=== PATIENT | male | born 1945 | race Caucasian/White ===

== ENCOUNTER 2016-12-24 12:32 | Observation (INO) | payer MEDICARE, BC ==
[~2016-12-24] VITALS: Ht 182.9 cm; Wt 71.2 kg
[2016-12-24] VITALS (9 sets, daily range): BP systolic 118–145; BP diastolic 71–84
[~2016-12-24 12:32] MED LIST: AMLO1TAB12 PO; ASPI325T4 PO; HYDROmorphone 2 MG/ML VIAL IV PRN; IV RINGERS,LACTATED 1000ML 1,000 ML IV SCH; LIDOCAINE 1% 1 ML SYRINGE. ID PRN; MORPHINE SULFATE 2 MG/ML DISP.SYRIN. IV PRN; PROCHLORPERAZINE 10 MG/2 ML VIAL. IV PRN; SIMV80TA3 PO; fentaNYL PF VIAL 100 MCG/2 ML VIAL IV PRN
[2016-12-24 13:03] LABS: BILIRUBIN,URINE NEGATIVE (NEG); GLUCOSE,URINE NEGATIVE (NEG); NITRITE,URINE NEGATIVE (NEG); PROTEIN,URINE NEGATIVE (NEG-TRACE); UROBILINOGEN,URINE 0.2 mg/dL (0.2 mg/dL)
[2016-12-24 13:13] LABS: BASO # 0.1 x10^3/uL (0.0-0.2); BASO % 1 % (0-3); EOS % 1 % (0-3); HEMATOCRIT 38.4 % (39.0-53.0); HEMOGLOBIN 13.1 g/dL (13.0-17.5); LYMPH # 1.3 x10^3/uL (1.0-4.8); LYMPH % 17 % (24-48); MEAN CORPUSCULAR HEMOGLOBIN 32 pg (25-35); MEAN CORPUSCULAR HGB CONC 34 g/dL (31-37); MEAN CORPUSCULAR VOLUME 95 fL (79-100); MONO % 9 % (0-9); NEUT % 73 % (31-73); PLATELET COUNT 160 x10^3/uL (140-400); RED BLOOD COUNT 4.07 x10^6/uL (4.30-5.70); WHITE BLOOD COUNT 7.9 x10^3/uL (4.0-11.0)
[2016-12-24 13:15] LABS: BACTERIA,URINE 0 /HPF (0-FEW); RBC,URINE >40 /HPF (0-2)
[2016-12-24 13:20] LABS: GFR 73.7; POTASSIUM 3.9 mmol/L (3.5-5.1)
[2016-12-24 13:22] LABS: INR 1.1 (0.8-1.1); PROTHROMBIN TIME PATIENT 13.3 SEC (11.7-14.0)
[2016-12-24] MEDS ORDERED: LIDOCAINE 2% PF Vial for OR 5 ML VIAL. ONE (13:27)
[2016-12-24] MEDS ORDERED: PROPOFOL 20 ML IV ONE ×2 (13:27→15:02)
[2016-12-24] MEDS ORDERED: fentaNYL PF VIAL 100 MCG/2 ML VIAL ONE (13:27)
[2016-12-24] MEDS ORDERED: PHENYLEPHRINE in 0.9% NACL PF 1 MG/10 ML DISP.SYRIN. IV ONE (14:52)
[2016-12-24] MEDS ORDERED: ONDANSETRON PF 4 MG/2 ML VIAL. ONE (15:08)
[2016-12-24] MEDS ORDERED: DEXAMETHASONE SOD PHOS 20 MG/5 ML VIAL. ONE (15:14)
[2016-12-24] MEDS ORDERED: MAG HYDROX/ALUMINUM HYD/SIMETH 30 ML ORAL.SUSP PO PRN (15:30)
[2016-12-24] MEDS ORDERED: MAGNESIUM HYDROXIDE 2,400 MG/30 ML ORAL.SUSP. PO PRN (15:30)
[2016-12-24] MEDS ORDERED: ACETAMINOPHEN 325 MG TABLET. PO PRN (15:30)
[2016-12-24] MEDS ORDERED: HYDROcodone/APAP 5/325MG 1 TAB TABLET PO PRN (15:30)
[2016-12-24] MEDS ORDERED: 0.9 % SODIUM CHLORIDE 10 ML DISP.SYRIN. IV PRN (15:30)
[2016-12-24] MEDS ORDERED: ONDANSETRON PF 4 MG/2 ML VIAL. IV PRN (15:30)
[2016-12-24] MEDS ORDERED: NALOXONE 0.4 MG/ML VIAL. IV PRN (15:30)
[2016-12-24] MEDS ORDERED: diphenhydrAMINE HCL 25 MG CAPSULE PO PRN (15:30)
--- NOTE | 2016-12-24 15:34 | PDOC ---
BRIEF OPERATIVE NOTE Date: Dec 24, 2016 Pre-Op Diagnosis Hematuria, Bladder Tumor Post-Op Diagnosis same Procedure Performed Transurethral Resection of large Bladder Tumor Surgeon Shelby Anesthesia Type: General Blood Loss less than 100cc Specimens Obtained Bladder tumor sent to Path Findings Large bladder tumor (posterior wall) Complications None Additional Remarks Observation bed TAVO SCHMID DO Dec 24, 2016 15:34
[2016-12-24] MEDS: IV NORMAL SALINE 1000ML BAG 1,000 ML IV SCH (16:55)
[2016-12-24] MEDS: NICOTINE 21MG PATCH. TD SCH (16:56)
--- NOTE | 2016-12-24 20:48 | OP ---
DATE OF SURGERY: 12/24/2016 PREOPERATIVE DIAGNOSIS: Intermittent gross hematuria, large bladder tumor. POSTOPERATIVE DIAGNOSIS: Intermittent gross hematuria, large bladder tumor. PROCEDURE: Transurethral resection of large bladder tumor (floor of the bladder -- posterior wall). SURGEON: Tavo Schmid DO. ANESTHESIA: General. INDICATIONS AND JUDGMENT: This is a 71-year-old male, patient of Dr. Herrera that was experiencing intermittent gross hematuria. He has a long history of tobacco abuse. He underwent cystoscopy in the office, was found to have a large bladder tumor on the floor of the bladder. It was felt that he should undergo transurethral resection of bladder tumor. The procedure was explained to the patient as well as possible risks and complications. He appeared to understand and was agreeable. DESCRIPTION OF PROCEDURE: The patient was preloaded with IV Levaquin. He was taken to the operating room and placed on the operating room table in a supine position, given a general anesthetic and then placed in a dorsolithotomy position using Les stirrups since we do not have a cystoscopy table. Rigid cystoscopy was performed. The urethra has normal course and caliber. He has a 20-gram prostate with visual obstruction. The scope was advanced into the bladder. The bladder was carefully examined. Once again, he was found to have 1 solitary large bladder tumor on the posterior wall of the bladder towards the dome. A well lubricated 24-Mauritanian resectoscope sheath was introduced into the urethra and into the bladder. Using an [employer] resectoscope, the tumor was very carefully resected down to its base. Once it had all been removed, the base of the tumor was cauterized. Hemostasis was satisfactory. All the tumor was then removed from the bladder using Ellik evacuator. Samples of the bladder tumor sent to pathology for tissue diagnosis. A well lubricated 20-Mauritanian 2-way Wiggins catheter was then inserted into the urethra and into the bladder without difficulty; 10 mL balloon and this was connected to a dependent drainage bag. The return of the urine was clear. There was no gross hematuria or clots. The patient tolerated the procedure well and was sent to recovery room in satisfactory condition. We will place him in a bed overnight and most likely let him be discharged tomorrow. TAVO SCHMID DO DR: JIMI/jennifer JOB#: [id number] / [id number]
[2016-12-24] MEDS: SENNOSIDES/DOCUSATE 8.6/50MG TABLET. PO SCH (21:00)
[2016-12-25 03:10] VITALS: BP 106/65
[2016-12-25] MEDS: IV NORMAL SALINE 1000ML BAG 1,000 ML IV SCH (06:05)
[2016-12-25 07:00] VITALS: BP 114/76
[2016-12-25 08:09] LABS: BASO % 0 % (0-3); EOS % 0 % (0-3); HEMATOCRIT 35.5 % (39.0-53.0); HEMOGLOBIN 12.1 g/dL (13.0-17.5); LYMPH # 0.6 x10^3/uL (1.0-4.8); LYMPH % 9 % (24-48); MEAN CORPUSCULAR HEMOGLOBIN 32 pg (25-35); MEAN CORPUSCULAR HGB CONC 34 g/dL (31-37); MEAN CORPUSCULAR VOLUME 95 fL (79-100); MONO % 7 % (0-9); NEUT % 84 % (31-73); PLATELET COUNT 137 x10^3/uL (140-400); RED BLOOD COUNT 3.76 x10^6/uL (4.30-5.70); RED CELL DISTRIBUTION WIDTH 13.4 % (11.5-14.5); WHITE BLOOD COUNT 7.4 x10^3/uL (4.0-11.0)
[2016-12-25 08:24] LABS: CALCIUM 8.3 mg/dL (8.5-10.1); CREATININE 0.9 mg/dL (0.7-1.3); GFR 83.2; POTASSIUM 4.4 mmol/L (3.5-5.1)
[2016-12-25] MEDS: NICOTINE 21MG PATCH. TD SCH (09:00)
[2016-12-25] MEDS: SENNOSIDES/DOCUSATE 8.6/50MG TABLET. PO SCH (09:00)
[2016-12-25 11:00] VITALS: BP 117/73
--- NOTE | 2016-12-25 15:03 | PDOC ---
Provider Note Provider Note Urology: POD# 1 TUR-BT Wiggins out, urine clear, Path pending Plan: Home RX Mimi Biswas Will call patient with Path report when available. TAVO SCHMID DO Dec 25, 2016 15:03
--- NOTE | 2016-12-25 15:05 | DISCH ---
DISCHARGE INSTRUCTIONS Condition on Discharge Condition on Discharge: Stable Activity After Discharge Activity Instructions for Disc: Avoid exertion Lifting Instructions after Dis: No heavy lifting Diet after Discharge Diet after Discharge: Regular Wound Incision Care Other wound/incision instructi: Void frequently to keep bladder empty as possible Contacting the DRArnulfo after DC Call your doctor for: Concerns you may have Follow-Up Follow up with: Dr Schmid will call you when Path report available TAVO SCHMID DO Dec 25, 2016 15:05
--- NOTE | 2016-12-25 23:22 | DS ---
DATE OF DISCHARGE: 12/25/2016 FINAL DIAGNOSIS: 1. Bladder cancer. OPERATIONS AND PROCEDURES: Transurethral resection of bladder tumor, 12/24/2016. This is a summary of the patient's hospital course. Well documented history and physical can be found within the body of the chart. Briefly, this 71-year-old male has a history of intermittent gross hematuria. He underwent cystoscopy in the office, was found to have a rather large bladder tumor on the floor of the bladder. It was felt that he should be brought to the hospital for transurethral resection of bladder tumor. The patient presented to the hospital on 12/24/2016. Under general anesthesia, transurethral resection of bladder tumor was performed. He tolerated the procedure well. At the conclusion, an indwelling Wiggins catheter was left in place. The patient was admitted to an observation bed overnight to monitor for gross hematuria. The following morning, his urine was clear, his Iwggins catheter was removed. He was voiding satisfactorily. Therefore, it was felt that he could be discharged home. The pathology report is still pending. The patient was discharged, he was given discharge instructions. He was given a prescription for Cipro antibiotics 500 mg p.o. b.i.d. for 3 days. Also, prescription for Flomax 1 tablet p.o. daily after supper, dispensed 30. I told the patient that I would call him as soon as I receive the pathology report. TAVO SCHMID DO DR: JIMI/jennifer JOB#: [id number] / [id number]
== END 2016-12-25 16:11 | disposition home or self-care (01) ==
LOC: SURG 12:32 → 4 NORTH 15:31
PROVIDERS: ADMIT Urology; ATTEND Urology
DX: C67.9 Malignant neoplasm of bladder, unspecified (principal)
CPT/HCPCS: 36415; 52240; 80048; 81001; 85027; 85610; 85730; G0378; G0379; J1100; J1956; J2370; J2405; J2704; J3010; J7030